=== PATIENT | female | born 1955 | race African-American/Black ===

== ENCOUNTER 2019-07-21 14:45 | Emergency (ER) | payer MEDICAID ==
[~2019-07-21] VITALS: Ht 152.4 cm; Wt 98.0 kg
[2019-07-21] MEDS ORDERED: humalog (15:24)
[2019-07-21] MEDS ORDERED: methocarbamol (15:24)
[2019-07-21] MEDS ORDERED: glipizide (15:24)
[2019-07-21] MEDS ORDERED: hydrocodone (15:24)
[2019-07-21] MEDS ORDERED: lantus (15:24)
[2019-07-21] MEDS ORDERED: atorvastatin (15:24)
[2019-07-21] MEDS ORDERED: MORPHINE SULFATE 4 MG/ML CPJ (NOT FOR IM USE) IV STA (18:19)
[2019-07-21] MEDS ORDERED: ONDANSETRON HCL 4MG/2ML INJ IV STA (18:19)
[2019-07-21 19:15] LABS: BASOPHILS % 0.5 % (0.0-2.0); EOSINOPHILS % 0.7 % (0.0-5.0); HEMATOCRIT. 37.3 % (36.0-48.0); HEMOGLOBIN. 12.3 g/dL (12.0-16.0); LYMPHOCYTES % 18.1 % (20.0-50.0); MEAN CORPUSCULAR HEMOGLOBIN 28.7 pg (28.0-32.0); MEAN CORPUSCULAR VOLUME 87.2 fL (81.0-99.0); MEAN PLATELET VOLUME 9.6 fl (7.4-10.4); MONOCYTES % 5.1 % (2.0-8.0); NEUTROPHILS % 75.6 % (40.0-76.0); PLATELET 299 x1000/uL (130-400); RED BLOOD CELL COUNT 4.28 mill/uL (4.2-5.4); RED CELL DISTRIBUTION WIDTH 14.9 % (11.6-14.6)
[2019-07-21 19:20] LABS: CHLORIDE 104 mEq/L (98-107)
[2019-07-21 19:25] LABS: INR 0.9; PARTIAL THROMBOPLASTIN TIME 24.8 sec (23.4-31.0); PROTHROMBIN TIME 9.7 sec (9.6-11.0)
[2019-07-21 22:27] LABS: CLARITY URINE TURBID (CLEAR); COLOR URINE DK YELLOW (YELLOW); KETONES URINE NEGATIVE (NEGATIVE); LEUKOCYTE ESTERASE URINE 3+ (NEGATIVE); NITRITE URINE POSITIVE (NEGATIVE); OCCULT BLOOD URINE 3+ (NEGATIVE); PH URINE 5.5 (4.5-8.0); PROTEIN URINE 2+ (NEGATIVE); UROBILINOGEN URINE 0.2 E.U./dL (0.2-1.0)
[2019-07-21 23:32] VITALS: BP 121/55
== END 2019-07-21 23:38 | disposition home or self-care (01) ==
LOC: ER 14:58
DX: R10.0 Acute abdomen (principal); N95.0 Postmenopausal bleeding; M54.5 Low back pain; R07.81 Pleurodynia; Z91.81 History of falling; R00.0 Tachycardia, unspecified; I10 Essential (primary) hypertension; E78.00 Pure hypercholesterolemia, unspecified; Z79.899 Other long term (current) drug therapy
CPT/HCPCS: 36415; 71045; 71100; 72100; 74177; 80053; 81003; 83690; 83880; 84484; 85025; 85610; 85730; 87077; 87086; 87186; 93005; 96374; 96375; 99285; J2270; J2405